=== PATIENT | male | born 1960 | race Caucasian/White ===

== ENCOUNTER → 2017-02-01 | Day surgery (SDC) | payer OTHER ==
[~2017-02-01] MED LIST: ATOR10TA60 PO; CETI10TA16 PO; HYDROmorphone 2 MG/ML VIAL IV PRN; IV RINGERS,LACTATED 1000ML 1,000 ML IV SCH; LIDOCAINE 1% PF 2 ML VIAL. ID PRN; LIDOCAINE 2% PF Vial for OR 5 ML VIAL. ONE; LISI1TAB3 PO; MORPHINE SULFATE 2 MG/ML DISP.SYRIN. IV PRN; OMEP40CA5 PO; ONDANSETRON PF 4 MG/2 ML VIAL. IV PRN; POLY255P PO; PROCHLORPERAZINE 10 MG/2 ML VIAL. IV PRN; PROPOFOL 40 ML IV ONE; fentaNYL PF VIAL 100 MCG/2 ML VIAL IV PRN
[2017-02-01 08:55] VITALS: BP 145/88
--- NOTE | 2017-02-02 13:23 | PATHOLOGY ---
PATHOLOGY REPORT * * * * * * * * FINAL DIAGNOSIS: A. Right colon random biopsies: - No significant pathologic abnormalities. B. Transverse colon random biopsies: - No significant pathologic abnormalities. C. Left colon random biopsies: - No significant pathologic abnormalities. (JPM:pit; 02/02/2017) COMMENT: Sections of the right colon, transverse colon, and left colon random biopsies appear similar and reveal segments of colonic mucosa. There is no evidence of an active chronic destructive colitis, lymphocytic colitis, or collagenous colitis. There is no dysplasia or evidence of malignancy. (JPM:pit; 02/02/2017) REPORT ELECTRONICALLY SIGNED BY: Karl Monae M.D. DATE/TIME: 02/02/2017 13:22 * * * * * * * * GROSS PATHOLOGY: A. Received in formalin labeled "Manuel Hu, random colon BX right colon," are multiple (more than 10) segments of burton soft tissue measuring 1.9 x 0.7 x 0.2 cm in aggregate dimensions and ranging from 0.2 to 0.4 cm in maximum dimension. The specimen is submitted entirely in cassette A1. B. Received in formalin labeled "Manuel Hu, transverse colon BX," are 9 segments of burton soft tissue measuring 1.6 x 0.6 x 0.3 cm in aggregate dimensions and ranging from 0.3 to 0.4 cm in maximum dimension. The specimen is submitted entirely in cassette B1. C. Received in formalin labeled "Manuel Hu, left colon BX," are 10 segments of burton soft tissue measuring 1.8 x 1.9 x 0.3 cm in aggregate dimensions and ranging from 0.3 to 0.6 cm in maximum dimension. The specimen is submitted entirely in cassette C1. (TSD; 02/01/2017) INITIAL CPT CODE(S): A; 16801 B; 79498 C; 06682 Professional services performed by [facility] at [facility] [address] [place] [address] Technical services performed by [facility] at [address] [place] [address], [address], [place] [address]. SPECIMEN(S) RECEIVED: A.Random colon biopsy, right colon B.Transverse colon biopsy C.Left colon biopsy, history of Crohn's CLINICAL HISTORY: Screening; History of Crohn's PATIENT: SIMON HUNASEEM Acevedo /AGE: 205/24/1960 (Age: 56) PATIENT #: [id number] ALT CASE #: SPECIMEN COLLECTION DATE: 02/01/2017 SPECIMEN RECEIVED DATE: 02/01/2017 [facility] - [address] [place] [id number] - PHONE: [phone] * * * END OF REPORT * * *
== END | disposition home or self-care (01) ==
LOC: ENDOS 06:57
PROVIDERS: ATTEND Internal Medicine Gastroenterology
DX: K64.0 First degree hemorrhoids (principal); K21.9 Gastro-esophageal reflux disease without esophagitis; E78.00 Pure hypercholesterolemia, unspecified; I10 Essential (primary) hypertension; M19.90 Unspecified osteoarthritis, unspecified site; F17.210 Nicotine dependence, cigarettes, uncomplicated; Z87.19 Personal history of other diseases of the digestive system; Z82.49 Family history of ischemic heart disease and other diseases of the circulatory system
CPT/HCPCS: 45380; 88305; J2704; J2001

== ENCOUNTER → 2017-04-14 | Outpatient (CLI) | payer OTHER | END | disposition home or self-care (01) | LOC: PNCL 10:16 | DX: M54.2 Cervicalgia (principal); M79.601 Pain in right arm; I10 Essential (primary) hypertension; K21.9 Gastro-esophageal reflux disease without esophagitis; K50.90 Crohn's disease, unspecified, without complications; Z87.891 Personal history of nicotine dependence | CPT/HCPCS: 99212 ==

== ENCOUNTER → 2017-04-28 | Outpatient (CLI) | payer OTHER ==
[~2017-04-28] MED LIST changes: -ATOR10TA60 PO; -CETI10TA16 PO; -HYDROmorphone 2 MG/ML VIAL IV PRN; +IOHEXOL 180 MG/ML 10 ML VIAL.; -IV RINGERS,LACTATED 1000ML 1,000 ML IV SCH; -LIDOCAINE 1% PF 2 ML VIAL. ID PRN; -LIDOCAINE 2% PF Vial for OR 5 ML VIAL. ONE; -LISI1TAB3 PO; -MORPHINE SULFATE 2 MG/ML DISP.SYRIN. IV PRN; -OMEP40CA5 PO; -ONDANSETRON PF 4 MG/2 ML VIAL. IV PRN; -POLY255P PO; -PROCHLORPERAZINE 10 MG/2 ML VIAL. IV PRN; -PROPOFOL 40 ML IV ONE; -fentaNYL PF VIAL 100 MCG/2 ML VIAL IV PRN; +methylPREDNISolone ACETATE 40 MG/ML VIAL.; +methylPREDNISolone ACETATE 80 MG/ML VIAL.
== END | disposition home or self-care (01) ==
LOC: PNCL 10:08
DX: M50.123 Cervical disc disorder at C6-C7 level with radiculopathy (principal); E78.00 Pure hypercholesterolemia, unspecified; I10 Essential (primary) hypertension; K50.90 Crohn's disease, unspecified, without complications; K21.9 Gastro-esophageal reflux disease without esophagitis
CPT/HCPCS: 62321; J1030; J1040

== ENCOUNTER → 2017-05-15 | Outpatient (CLI) | payer OTHER | END | disposition home or self-care (01) | LOC: PNCL 08:12 | DX: M50.123 Cervical disc disorder at C6-C7 level with radiculopathy (principal); E78.00 Pure hypercholesterolemia, unspecified; I10 Essential (primary) hypertension; Z87.39 Personal history of other diseases of the musculoskeletal system and connective tissue | CPT/HCPCS: 62321; J1030; J1040; Q9965 ==

== ENCOUNTER → 2017-05-29 | Outpatient (CLI) | payer OTHER | END | disposition home or self-care (01) | LOC: PNCL 08:02 | DX: M50.10 Cervical disc disorder with radiculopathy, unspecified cervical region (principal); R53.1 Weakness | CPT/HCPCS: 99212 ==

== ENCOUNTER → 2017-06-19 | Outpatient (CLI) | payer OTHER ==
[2017-06-19 15:50] LABS: ADD MAN DIFF? NO
[2017-06-19 15:53] LABS: BASO # 0.1 x10^3/uL (0.0-0.2); BASO % 1 % (0-3); EOS # 0.1 x10^3/uL (0.0-0.7); EOS % 2 % (0-3); HEMATOCRIT 45.4 % (39.0-53.0); HEMOGLOBIN 15.6 g/dL (13.0-17.5); LYMPH # 3.2 x10^3/uL (1.0-4.8); LYMPH % 37 % (24-48); MEAN CORPUSCULAR HEMOGLOBIN 31 pg (25-35); MEAN CORPUSCULAR HGB CONC 34 g/dL (31-37); MEAN CORPUSCULAR VOLUME 91 fL (79-100); MONO # 0.4 x10^3/uL (0.0-1.1); MONO % 5 % (0-9); NEUT # 4.8 x10^3uL (1.8-7.7); NEUT % 55 % (31-73); PLATELET COUNT 201 x10^3/uL (140-400); RED BLOOD COUNT 4.99 x10^6/uL (4.30-5.70); RED CELL DISTRIBUTION WIDTH 13.9 % (11.5-14.5); WHITE BLOOD COUNT 8.6 x10^3/uL (4.0-11.0)
[2017-06-19 16:33] LABS: ALBUMIN 3.8 g/dL (3.4-5.0); ALBUMIN/GLOBULIN RATIO 1.2 (1.0-1.7); ALK PHOS 125 U/L (46-116); ALT (SGPT) 24 U/L (16-63); ANION GAP 10 (6-14); AST (SGOT) 20 U/L (15-37); BLOOD UREA NITROGEN 8 mg/dL (8-26); BUN/CREATININE RATIO 9 (6-20); CALCIUM 9.5 mg/dL (8.5-10.1); CARBON DIOXIDE 29 mmol/L (21-32); CHLORIDE 105 mmol/L (98-107); CREATININE 0.9 mg/dL (0.7-1.3); GFR 87.6; GLUCOSE 92 mg/dL (70-99); POTASSIUM 3.5 mmol/L (3.5-5.1); SODIUM 144 mmol/L (136-145); TOTAL BILIRUBIN 0.3 mg/dL (0.2-1.0); TOTAL PROTEIN 7.1 g/dL (6.4-8.2)
[2017-06-20 02:19] LABS: MRSA BY PCR Negative (Negative)
== END | disposition home or self-care (01) ==
LOC: SURGPAT 13:29
DX: Z01.818 Encounter for other preprocedural examination (principal); Z87.891 Personal history of nicotine dependence
CPT/HCPCS: 36415; 80053; 85025; 87641; 93005

== ENCOUNTER 2017-06-26 06:58 | Observation (INO) | payer OTHER ==
[~2017-06-26 06:58] MED LIST changes: -IOHEXOL 180 MG/ML 10 ML VIAL.; +KETOROLAC 60 MG/2 ML INJ FOR OR.; -methylPREDNISolone ACETATE 40 MG/ML VIAL.; -methylPREDNISolone ACETATE 80 MG/ML VIAL.
[2017-06-26] MEDS ORDERED: MORPHINE SULFATE 4 MG/ML DISP.SYRIN. IV (07:00)
[2017-06-26] MEDS ORDERED: fentaNYL PF VIAL 100 MCG/2 ML VIAL IV (07:00)
[2017-06-26] MEDS ORDERED: ONDANSETRON PF 4 MG/2 ML VIAL. IV ×2 (07:00→12:00)
[2017-06-26] MEDS ORDERED: LIDOCAINE 1% PF 2 ML VIAL. ID (07:00)
[2017-06-26] MEDS ORDERED: BUPIVAC MPF-EPI 0.5%-1:200000 30 ML VIAL. (07:43)
[2017-06-26] MEDS: IV RINGERS,LACTATED 1000ML 1,000 ML IV (07:44)
[2017-06-26] MEDS ORDERED: NEOSTIGMINE 10 MG/10 ML VIAL. (08:11)
[2017-06-26] MEDS ORDERED: fentaNYL PF VIAL 100 MCG/2 ML VIAL ×2 (08:11→11:30)
[2017-06-26] MEDS ORDERED: MIDAZOLAM HCL/PF 2 MG/2 ML VIAL. (08:11)
[2017-06-26] MEDS ORDERED: PROPOFOL 50 ML IV ×2 (08:12→09:07)
[2017-06-26] MEDS ORDERED: REMIFENTANIL 2 MG VIAL. IV (08:12)
[2017-06-26] MEDS ORDERED: ONDANSETRON PF 4 MG/2 ML VIAL. (08:12)
[2017-06-26] MEDS ORDERED: GLYCOPYRROLATE 1 MG/5 ML VIAL. (08:12)
[2017-06-26] MEDS ORDERED: DEXAMETHASONE SOD PHOS 20 MG/5 ML VIAL. (08:12)
[2017-06-26] MEDS ORDERED: DESFLURANE > 120 MINUTES IH (08:12)
[2017-06-26] MEDS ORDERED: ROCURONIUM 50 MG/5 ML VIAL. (08:12)
[2017-06-26] MEDS ORDERED: PROPOFOL 20 ML IV (08:13)
[2017-06-26] MEDS ORDERED: PHENYLEPHRINE 10 MG/ML VIAL. ×2 (08:15)
[2017-06-26] MEDS: BUPIVAC MPF-EPI 0.5%-1:200000 30 ML VIAL. INJ (09:26)
[2017-06-26] MEDS: GELATIN SPONGE SIZE 100. (09:26)
[2017-06-26] MEDS: BACITRACIN 50,000 UNIT in IV NORMAL SALINE 1000ML BAG 1,000 ML IRR (09:26)
[2017-06-26] MEDS: THROMBIN TOPICAL 20,000 UNIT SPRAY.SYRN KIT TP (09:26)
[2017-06-26] MEDS ORDERED: PROCHLORPERAZINE 10 MG/2 ML VIAL. (11:30)
[2017-06-26] MEDS: PROCHLORPERAZINE 10 MG/2 ML VIAL. IV (11:33)
[2017-06-26] MEDS: fentaNYL PF VIAL 100 MCG/2 ML VIAL IV ×2 (11:43→12:12)
[2017-06-26] MEDS ORDERED: POLYETHYLENE GLYCOL 3350 17 GM PACKET. PO (11:55)
[2017-06-26] MEDS ORDERED: CALCIUM CARBONATE 500 MG TAB.CHEW PO (12:00)
[2017-06-26] MEDS ORDERED: diphenhydrAMINE HCL 25 MG CAPSULE PO (12:00)
[2017-06-26] MEDS ORDERED: MAGNESIUM HYDROXIDE 2,400 MG/30 ML ORAL.SUSP. PO (12:00)
[2017-06-26] MEDS ORDERED: diphenhydrAMINE 50 MG/ML VIAL IV (12:00)
[2017-06-26] MEDS ORDERED: ACETAMINOPHEN 325 MG TABLET. PO (12:00)
[2017-06-26] MEDS ORDERED: HYDROcodone/APAP 7.5/325MG 1 TAB TABLET PO (12:00)
[2017-06-26] MEDS ORDERED: 0.9 % SODIUM CHLORIDE 10 ML DISP.SYRIN. IV (12:00)
[2017-06-26] MEDS ORDERED: MAG HYDROX/ALUMINUM HYD/SIMETH 30 ML ORAL.SUSP PO (12:00)
[2017-06-26] MEDS ORDERED: ZOLPIDEM 5 MG TABLET. PO (12:00)
[2017-06-26] MEDS: POTASSIUM CL 20MEQ D5-0.45NACL 1,000 ML IV (13:14)
[2017-06-26] MEDS: hydroCHLOROthiazide 12.5 MG CAPSULE PO (13:17)
[2017-06-26] MEDS: LISINOPRIL 10 MG TABLET PO (13:17)
[2017-06-26] MEDS: METHOCARBAMOL 750 MG TABLET PO ×2 (13:18→21:10)
[2017-06-26] MEDS: HYDROcodone/APAP 7.5/325MG 1 TAB TABLET PO ×2 (13:19→16:11)
[2017-06-26] MEDS ORDERED: ceFAZolin SODIUM 1 GM in IV DEXTROSE 5% 50 ML IV (14:00)
[2017-06-26] MEDS: ceFAZolin SODIUM IV Push 1 GM VIAL. IVP (16:11)
[2017-06-26] MEDS: DOCUSATE SODIUM 100 MG CAPSULE. PO (21:10)
[2017-06-27] MEDS: ceFAZolin SODIUM IV Push 1 GM VIAL. IVP ×2 (00:58→08:03)
[2017-06-27] MEDS: POTASSIUM CL 20MEQ D5-0.45NACL 1,000 ML IV (00:59)
[2017-06-27] MEDS: HYDROcodone/APAP 7.5/325MG 1 TAB TABLET PO ×2 (01:12→08:05)
[2017-06-27] MEDS: PANTOPRAZOLE 40 MG TABLET.DR. PO (06:18)
[2017-06-27] MEDS: ATORVASTATIN CALCIUM 10 MG TABLET. PO (08:04)
[2017-06-27] MEDS: DOCUSATE SODIUM 100 MG CAPSULE. PO (08:04)
[2017-06-27] MEDS: CETIRIZINE HCL 10 MG TABLET. PO (08:05)
[2017-06-27] MEDS: LISINOPRIL 10 MG TABLET PO (08:05)
[2017-06-27] MEDS: hydroCHLOROthiazide 12.5 MG CAPSULE PO (08:05)
[2017-06-27] MEDS: METHOCARBAMOL 750 MG TABLET PO (08:05)
== END 2017-06-27 11:20 | disposition home or self-care (01) ==
LOC: SURG 06:58 → 4 SOUTHEST 11:52
DX: M48.02 Spinal stenosis, cervical region (principal); M50.122 Cervical disc disorder at C5-C6 level with radiculopathy; I10 Essential (primary) hypertension; Z83.3 Family history of diabetes mellitus; Z87.891 Personal history of nicotine dependence; Z82.49 Family history of ischemic heart disease and other diseases of the circulatory system
CPT/HCPCS: 20931; 76000; 88304; 96374; 96376; 97162-GP; 97530-GP; C1713; G0378; G0379; G8978-CI-GP; G8979-CI-GP; G8980-CI-GP; J0690; J0780; J1100; J1885; J2250; J2405; J2704; J2710; J3010; J3490; J7030; J7120

== ENCOUNTER → 2018-01-22 | Outpatient (CLI) | payer OTHER ==
[2017-06-27 12:40] VITALS: BP 104/67
[~2018-01-22] MED LIST changes: +ATOR10TA60 PO; +CETI10TA16 PO; +CYCL10TA2 PO; +DICL50TA4 PO; +DOCU-109 PO; +HYDR-2762 PO; -KETOROLAC 60 MG/2 ML INJ FOR OR.; +LISI1TAB3 PO; +METH750T2 PO; +OMEP40CA5 PO; +OXYC1TAB7 PO; +POLY255P PO; +TRAM50TA PO
--- NOTE | 2018-01-22 16:05 | RAD ---
CT of the chest without contrast, 01/22/2018: HISTORY: Low dose CT lung cancer screening, smoker Multidetector CT imaging was performed without contrast utilizing a low-dose technique. Multiplanar reconstructions were produced. There are several minimal linear parenchymal scars. There are couple of tiny perifissural nodules related to the oblique fissure on the left. These include a flat 3 x 6 mm left perihilar nodule seen on image 164 of series #2. These are typically benign findings. No suspicious lung nodule or mass is seen. There is no evidence of pleural fluid. The central bronchi are unremarkable. There is mild calcific plaquing of the thoracic aorta without evidence of aneurysm. Minimal coronary artery calcification is present. Several small mediastinal lymph nodes are seen without evidence of pathologic enlargement. There is no evidence of pleural fluid. Moderate scattered degenerative changes are present in the spine. There is a surgical plate and screws evident in the lower cervical spine. IMPRESSION: 1. Small benign-appearing perifissural nodules on the left. 2. Minimal coronary artery calcification. 3. Lung RADS category 2 - 12 month follow-up suggested. PQRS Compliance Statement: One or more of the following individualized dose reduction techniques were utilized for this examination: 1. Automated exposure control 2. Adjustment of the mA and/or kV according to patient size 3. Use of iterative reconstruction technique Electronically signed by: Kevin Iverson MD (01/22/2018 4:01 PM) [facility]
== END | disposition home or self-care (01) ==
LOC: CT 13:52
PROVIDERS: ATTEND Family Medicine
DX: Z12.2 Encounter for screening for malignant neoplasm of respiratory organs (principal); F17.210 Nicotine dependence, cigarettes, uncomplicated; I25.10 Atherosclerotic heart disease of native coronary artery without angina pectoris
CPT/HCPCS: G0297

== ENCOUNTER → 2019-02-25 | Outpatient (CLI) | payer OTHER ==
[2017-06-27 12:40] VITALS: BP 104/67
[~2019-02-25] MED LIST changes: -HYDR-2762 PO; +HYDR-2765 PO; +LISI1TAB23 PO; -LISI1TAB3 PO; +OMEP40CA45 PO; -OMEP40CA5 PO; -POLY255P PO; +POLY255P11 PO
--- NOTE | 2019-02-25 08:16 | RAD ---
Carotid doppler ultrasound History: Syncope, high cholesterol, smoker Multiple grayscale, color, and duplex spectral analysis waveform sonographic images were acquired of the carotid, subclavian, and vertebral arteries. Comparison: None Findings: RIGHT: PSV cm/sec EDV cm/sec Common carotid artery 111 19 Maximal internal carotid artery 63 15 External carotid artery 105 Vertebral artery 44 ICA/CCA ratio 0.57 LEFT: PSV cm/sec EDV cm/sec Common carotid artery 93 24 Maximum internal carotid artery 69 28 Subclavian artery External carotid artery 89 Vertebral artery 45 ICA/CCA ratio 0.68 Velocities used to determine stenosis are known to correlate with NASCET angiographic criteria. There is antegrade flow in the bilateral vertebral arteries. There is intimal thickening of the bilateral common carotid arteries, also mild plaque of the proximal internal carotid arteries bilaterally. Impression: 1. There is no evidence of a hemodynamically significant stenosis. There is mild plaque and intimal thickening bilaterally. Electronically signed by: Percy Sosa MD (02/25/2019 8:14 AM) [facility]
== END | disposition home or self-care (01) ==
LOC: US 06:47
PROVIDERS: ATTEND Internal Medicine
DX: I65.23 Occlusion and stenosis of bilateral carotid arteries (principal); E78.00 Pure hypercholesterolemia, unspecified; Z87.891 Personal history of nicotine dependence
CPT/HCPCS: 93880

== ENCOUNTER → 2019-03-11 | Outpatient (CLI) | payer OTHER ==
[2017-06-27 12:40] VITALS: BP 104/67
--- NOTE | 2019-03-11 10:05 | RAD ---
MR#: [id number] Date of Study: 03/11/2019 Ordering Physician: MORAIMA EUBANKS, Referring Physician: DESMOND WHITAKER Tech: APPROVED REPORT Test Type: Exercise Stress Nurse/Tech: Citlalli Kraft RN Test Indications: syncope Cardiac History: HTN, smoker Medications: See Electronic Medical Record Medical History: See Electronic Medical Record Resting ECG: SR Resting Heart Rate: 90 bpm Resting Blood Pressure: 125/70mmHg Pretest Chest Pain: NoneNone Nurse/Tech Notes lungs CTA, S1S2 Consent: The procedure was explained to the patient in lay terms. Informed consent was witnessed. Sajan eout was entered into [employer]. History and Stress Test performed by Rik Romero, RT (R) (N) Stress Symptoms No chest pain, dyspnea POST EXERCISE Reason for Termination: Reached target heart rate Target HR: 139 Exercise duration: 6:00 min:sec, 3 Stage Max Blood Pressure: 156/77mmHg Blood Pressure response to exercise: Normal blood pressure response during stress. Heart Rate response to exercise: normal response Chest Pain: No. Arrhythmia: No. ST Change: No. INTERPRETATION Stress EKG Conclusion: No evidence of stress induced EKG changes. Conclusion 1. Good exercise capacity with normal BP response. 2. No evidence of resting EKG abnormalities. 3. Normal stress EKG. 4. Low risk study 5. No imaging performed (Treadmill EKG only) Signed by : Negrito Flower, Electronically Approved : 03/11/2019 10:05:28
== END | disposition home or self-care (01) ==
LOC: NM 09:02
PROVIDERS: ATTEND Internal Medicine
DX: I20.9 Angina pectoris, unspecified (principal); I10 Essential (primary) hypertension; Z87.891 Personal history of nicotine dependence
CPT/HCPCS: 93017

== ENCOUNTER 2019-04-26 08:48 | Observation (INO) | payer OTHER ==
[~2019-04-26] VITALS: Ht 177.8 cm; Wt 104.3 kg
[2019-04-26] VITALS (12 sets, daily range): BP systolic 114–144; BP diastolic 61–87
[2019-04-26 09:23] LABS: CALCIUM 9.6 mg/dL (8.5-10.1); GFR 77.3
[2019-04-26] MEDS ORDERED: GABA300C18 PO (09:31)
[2019-04-26 09:35] LABS: HEMATOCRIT 51.1 % (39.0-53.0); HEMOGLOBIN 17.3 g/dL (13.0-17.5); RED BLOOD COUNT 5.65 x10^6/uL (4.30-5.70); RED CELL DISTRIBUTION WIDTH 14.4 % (11.5-14.5); WHITE BLOOD COUNT 9.5 x10^3/uL (4.0-11.0)
[2019-04-26 10:00] LABS: PROTHROMBIN TIME PATIENT 12.5 SEC (11.7-14.0)
[2019-04-26] MEDS ORDERED: IODIXANOL 320 MG/ML 100 ML VIAL. ONE (10:03)
[2019-04-26] MEDS ORDERED: LIDOCAINE 1% PF 2 ML VIAL. ONE (10:03)
[2019-04-26] MEDS ORDERED: HEPARIN for IV BOLUS 10,000 UNIT/10 ML VIAL. ONE (10:10)
[2019-04-26] MEDS ORDERED: MIDAZOLAM HCL/PF 2 MG/2 ML VIAL. ONE (10:10)
[2019-04-26] MEDS ORDERED: VERAPAMIL 5 MG/2 ML VIAL. ONE (10:10)
[2019-04-26] MEDS ORDERED: fentaNYL PF VIAL 100 MCG/2 ML VIAL ONE (10:10)
[2019-04-26] MEDS ORDERED: NITROGLYCERIN 200 MCG/2 ML SYRINGE FOR CATH/VASC LAB. ONE ×2 (10:11→11:14)
[2019-04-26] MEDS ORDERED: VERAPAMIL 5 MG/2 ML VIAL. IART ONE (10:45)
[2019-04-26] MEDS ORDERED: MIDAZOLAM HCL/PF 2 MG/2 ML VIAL. IV ONE ×2 (10:45→11:00)
[2019-04-26] MEDS ORDERED: IODIXANOL 320 MG/ML 100 ML VIAL. IART ONE (10:45)
[2019-04-26] MEDS ORDERED: HEPARIN for IV BOLUS 10,000 UNIT/10 ML VIAL. IART ONE (10:45)
[2019-04-26] MEDS ORDERED: NITROGLYCERIN 200 MCG/2 ML SYRINGE FOR CATH/VASC LAB. IART ONE ×2 (10:45→11:15)
[2019-04-26] MEDS ORDERED: LIDOCAINE 1% PF 2 ML VIAL. INJ ONE (10:45)
[2019-04-26] MEDS ORDERED: BIVALIRUDIN 250 MG VIAL. IV ONE ×2 (10:45→11:00)
[2019-04-26] MEDS ORDERED: fentaNYL PF VIAL 100 MCG/2 ML VIAL IV ONE (10:45)
[2019-04-26] MEDS ORDERED: CONTRAST GIVEN. MC PRN (11:00)
[2019-04-26] MEDS ORDERED: ATROPINE 1 MG/10 ML DISP.SYRINGE. ONE (11:02)
[2019-04-26] MEDS ORDERED: ASPIRIN 325 MG TABLET ONE (11:24)
[2019-04-26] MEDS ORDERED: TICAGRELOR 90 MG TABLET. ONE (11:24)
--- NOTE | 2019-04-26 11:36 | PDOC ---
MODERATE SEDATION ASSESSMENT RISKS/ALTERNATIVES Risks/Alternatives Risks and alternatives of this type of sedation and procedure discussed with: RISK/ALTERNATIVES: Patient H & P ON CHART H & P H & P on chart and reviewed for co-morbid conditions and appropriate labs. H&P ON CHART: Yes STATUS PREG STATUS ASSESSED: N/A MEDS/ALLERGIES REVIEWED Meds/Allergies Reviewed Medications and Allergies including time and route of recently administered narcotics and sedatives. MEDS/ALLERGIES REVIEWED: Yes ASA RATING ASA RATING: II AIRWAY ASSESSMENT Airway Assessment Airway patency, oral function limitations, presence of caps, crowns, dentures, partials, and ability to extend neck assessed. AIRWAY ASSESSMENT: Yes MALLAMPATI SCORE MALLAMPATI SCORE: II PRE-SEDATION ASSESSMENT PRE-SEDATION ASSESSMENT: Yes RABIA VASQUEZ MD Apr 26, 2019 11:36
[2019-04-26] MEDS ORDERED: TICAGRELOR 90 MG TABLET. PO ONE (11:45)
[2019-04-26] MEDS ORDERED: ACETAMINOPHEN 325 MG TABLET. PO PRN (11:45)
[2019-04-26] MEDS ORDERED: NITROGLYCERIN SUBLINGUAL 0.4 MG BOTTLE OF 25. SL PRN (11:45)
[2019-04-26] MEDS ORDERED: ASPIRIN 325 MG TABLET PO ONE (11:45)
--- NOTE | 2019-04-26 11:50 | CARD ---
MR#: [id number] Date of Study: 04/26/2019 Ordering Physician: RABIA DESAI, Referring Physician: RABIA DESAI, Tech: RT Alejandra (R) APPROVED REPORT Technologist: Madelyn Hernandez RT (R) Nurse: Kacey Siddiqi Procedure(s) performed: 1. Left heart catheterization and selective coronary angiography via right t ransradial approach 2. Successful PCI/drug eluting stents placement to the right coronary artery, left circumflex artery and the first obtuse marginal branch fl time: 15.7 mins dose: 171 gy/cm2 contrast: 222 ml moderate sedation: 60 min INDICATION The indication(s) include : unstable angina . CS Clinical Frailty Scale [facility] Clinical Frailty Scale: Managing Well Heart Failure Heart Failure: No PROCEDURE NARRATIVE After explaining the risks, benefits and alternative options, informed consent was obtained from morgan ent. Patient was brought to the cardiac Tool Checker and right wrist was prepped and draped in the usual fashion after confirming a positive modified Francisco J's test. Arterial access was obtained in the righ t radial artery and a 6 Kyrgyz sheath was inserted. 6 Kyrgyz Mychal catheter was used to perform yessenia ective angiography of the left and right coronary arteries. LVEDP and transaortic gradients were nico ured. The following findings were noted. FINDINGS 1. Hemodynamics: Left ventricular end-diastolic pressure of 17 mmHg. No pullback gradient across th e aortic valve. 2. Coronary angiography: a. The left main coronary artery arose from the left sinus of Valsalva, gave rise to the left anteri or descending and left circumflex arteries and did not show any significant stenosis. b. The left anterior descending artery showed 30% stenosis in the midsegment. c. The left circumflex artery showed 70% stenosis in the mid to distal segment. The first obtuse mar ginal branch which is a large caliber vessel showed 70-80% stenosis. The second obtuse marginal branc h which is a small-caliber vessel showed 80% proximal segment stenosis. d. The right coronary artery was a large and dominant vessel arising from the right sinus of Valsalv a that showed 90% stenosis involving the distal segment. INTERVENTION The right coronary artery was engaged with a 6 Kyrgyz JR4 guide catheter. The stenosis in the distal segment was crossed with a 0.014 inch Youtego Pro water guidewire. This was predilated with a 3.0 x 15 mm trek balloon following which this was successfully treated with a 3.5 x 18 mm resolute rosamaria drug-e luting stent. Follow-up angiography showed resolution of the stenosis to 0% with PATRICA-3 distal flow. Subsequently, the left main cornea artery was engaged with 6 Kyrgyz XB 3.5 guide catheter and the sahra nosis in the left circumflex artery was crossed with the same guidewire. This was directly treated wi th a 3.0 x 12 mm resolute rosamaria drug-eluting stent. Finally, the stenosis in the first of marginal bra nch was crossed with the same guidewire, predilated with the stent balloon and successfully treated w ith a 3.0 x 15 mm resolute rosamaria drug-eluting stent. Follow-up angiography showed resolution of both t he lesions to 0% with PATRICA-3 distal flow. Patient tolerated the procedure well. Hemostasis was achiev ed using TR band. There were no immediate complications. PATRICA Flow PATRICA Flow (Pre-Intervention): PATRICA-2 PATRICA Flow (Post-Intervention): PATRICA-3 COMMENTS RCA PATRICA Flow PATRICA Flow (Pre-Intervention): PATRICA-3 PATRICA Flow (Post-Intervention): PATRICA-3 COMMENTS Circ PATRICA Flow PATRICA Flow (Pre-Intervention): PATRICA-3 PATRICA Flow (Post-Intervention): PATRICA-3 COMMENTS OM Conclusion 1. Severe two-vessel coronary artery disease 2. Successful PCI/drug eluting stents placement to the right coronary artery, left circumflex artery and also the first obtuse marginal branch Recommendations 1. Aspirin 81 mg daily 2. Ticagrelor 90 mg twice daily for preferably one year 3. Cardiovascular risk factor modification Signed by : Rabia Desai, Electronically Approved : 04/26/2019 11:50:03
[2019-04-26] MEDS: METOPROLOL TART IMMED RELEASE 25 MG TABLET. PO SCH ×2 (12:36→20:52)
[2019-04-26] MEDS: IV 1/2 NORMAL SALINE 1,000 ML IV SCH ×2 (12:38→20:53)
[2019-04-26] MEDS ORDERED: PERFLUTREN PROTEIN-A MICROSPHR 0.22 MG/ML 3 ML VIAL. IV ONE (15:31)
[2019-04-26] MEDS ORDERED: ATORVASTATIN CALCIUM 20 MG TABLET PO SCH (21:00)
[2019-04-27 03:45] VITALS: BP 127/82
[2019-04-27 07:00] VITALS: BP 126/84
[2019-04-27] MEDS: IV 1/2 NORMAL SALINE 1,000 ML IV SCH (07:36)
[2019-04-27] MEDS ORDERED: ASPIRIN ENTERIC COATED 81 MG TABLET.DR. PO SCH (08:00)
[2019-04-27] MEDS ORDERED: TICAGRELOR 90 MG TABLET. PO SCH (09:00)
[2019-04-27] MEDS: METOPROLOL TART IMMED RELEASE 25 MG TABLET. PO SCH (09:10)
--- NOTE | 2019-04-27 09:46 | CARD ---
MR#: [id number] Date of Study: 04/26/2019 Ordering Physician: RABIA DESAI, Referring Physician: RABIA DESAI, Tech: Bobbi Araya APPROVED REPORT EXAM: Two-dimensional and M-mode echocardiogram with Doppler and color Doppler. Other Information Quality : FairHR: 68bpm INDICATION Chest Pain Echo Enhancing Agent Indication: Endocardial border delineation Agent/Amount Used: Optison 10mL RISK FACTORS Hypertension Hyperlipidemia Smoking 2D DIMENSIONS Left Atrium(2D)3.0 (1.6-4.0cm)IVSd1.2 (0.7-1.1cm) Aortic Root(2D)3.8 (2.0-3.7cm)LVDd5.2 (3.9-5.9cm) LVOT Diameter2.0 (1.8-2.4cm)PWd0.9 (0.7-1.1cm) LVDs3.2 (2.5-4.0cm)FS (%) 37.4 % SV86.0 mlLVEF(%)67.1 (>50%) Aortic Valve AoV Peak Mk.139.4cm/sAoV VTI25.4cm AO Peak GR.7.8mmHgLVOT VTI 23.30cm AO Mean GR.4mmHg Mitral Valve MV E Qzopxtqv99.8cm/sMV E Peak Gr.3mmHg MV DECEL [id number] A Khnkgyls15.0cm/s MV E Mean Gr.1mmHgE/A Ratio1.1 Pulmonary Vein S1 Loyhkcnu20.5cm/sS2 Vdprnnbm61.53cm/s D2 Urghzerv97.5cm/sPVa [id number] LEFT VENTRICLE The left ventricle is normal size. There is borderline concentric left ventricular hypertrophy. The l eft ventricular systolic function is normal. The Ejection Fraction is 55%. There is normal LV segment al wall motion. RIGHT VENTRICLE The right ventricle is normal size. There is normal right ventricular wall thickness. The right ventr icular systolic function is normal. ATRIA The left atrium size is normal. The right atrium size is normal. The interatrial septum is intact wit h no evidence for an atrial septal defect or patent foramen ovale as noted on 2-D or Doppler imaging. AORTIC VALVE The aortic valve is not well visualized. Doppler and Color Flow revealed no significant aortic regurg itation. There is no significant aortic valvular stenosis. MITRAL VALVE The mitral valve is normal in structure and function. There is no evidence of mitral valve prolapse. There is no mitral valve stenosis. Doppler and Color Flow revealed no mitral valve regurgitation note d. TRICUSPID VALVE The tricuspid valve is not well visualized. Doppler and Color Flow revealed no tricuspid valve regurg itation noted. There is no tricuspid valve stenosis. PULMONIC VALVE The pulmonic valve is not well visualized. Doppler and Color Flow revealed no pulmonic valvular regur gitation. GREAT VESSELS The aortic root is normal in size. The IVC is normal in size and collapses >50% with inspiration. PERICARDIAL EFFUSION There is no evidence of significant pericardial effusion. Critical Notification Critical Value: No <Conclusion> Technically difficult study. Valves poorly visualized. Optison echo contrast used for endocardial de finition. The left ventricular systolic function is normal. The Ejection Fraction is 55%. There is normal LV segmental wall motion. There is no evidence of significant pericardial effusion. Signed by : Rabia Desia, Electronically Approved : 04/27/2019 09:46:10
[2019-04-27 11:21] VITALS: BP 128/70
[2019-04-27] MEDS ORDERED: TICA90TA PO (11:29)
[2019-04-27] MEDS ORDERED: ATOR20TA58 PO (11:29)
[2019-04-27] MEDS ORDERED: METO25TA4 PO (11:29)
--- NOTE | 2019-04-27 11:30 | PDOC3 ---
Discharge Summary Visit Information Date of Admission: Apr 26, 2019 Date of Discharge: Apr 27, 2019 Admitting Diagnosis: unstable angina Final Diagnosis Unstable angina Coronary artery disease Hypertension Hyperlipidemia Brief Hospital Course Allergies Allergies Coded Allergies Type Severity Reaction Last Updated Verified No Known Drug Allergies 06/26/17 No Vital Signs Vital Signs Date Time Temp Pulse Resp B/P (MAP) Pulse Ox O2 Delivery O2 Flow Rate FiO2 04/27/19 11:21 97.7 68 18 128/70 (89) 98 Room Air 97.7 04/26/19 10:45 2.0 Lab Results Laboratory Tests Test 04/26/19 09:10 White Blood Count 9.5 x10^3/uL (4.0-11.0) Red Blood Count 5.65 x10^6/uL (4.30-5.70) Hemoglobin 17.3 g/dL (13.0-17.5) Hematocrit 51.1 % (39.0-53.0) Mean Corpuscular Volume 90 fL (79-100) Mean Corpuscular Hemoglobin 31 pg (25-35) Mean Corpuscular Hemoglobin Concent 34 g/dL (31-37) Red Cell Distribution Width 14.4 % (11.5-14.5) Platelet Count 193 x10^3/uL (140-400) Prothrombin Time 12.5 SEC (11.7-14.0) Prothromb Time International Ratio 1.0 (0.8-1.1) Sodium Level 141 mmol/L (136-145) Potassium Level 4.0 mmol/L (3.5-5.1) Chloride Level 103 mmol/L (98-107) Carbon Dioxide Level 30 mmol/L (21-32) Anion Gap 8 (6-14) Blood Urea Nitrogen 10 mg/dL (8-26) Creatinine 1.0 mg/dL (0.7-1.3) Estimated GFR (Cockcroft-Gault) 77.3 Glucose Level 112 mg/dL (70-99) Calcium Level 9.6 mg/dL (8.5-10.1) Brief Hospital Course Mr. Delgado is a 58 old who presented with unstable angina and underwent cardiac catheterization with successful PCI/ANNA to RCA and LCx/OM. He remained hemodynamically stable and symptom-free during his hospital stay and his right wrist looked good at the time of discharge. Continue dual antiplatelet therapy and follow-up with our office as scheduled. Discharge Information Condition at Discharge: Stable Follow Up: Months (1) Disposition/Orders: D/C to Home Scheduled Atorvastatin Calcium (Atorvastatin Calcium) 20 Mg Tablet, 40 MG PO QHS for hlp for 30 Days, #60 Ref 3 Prescribed by: RABIA VASQUEZ on 04/27/191128 Cetirizine Hcl (Cetirizine Hcl) 10 Mg Tablet, 1 TAB PO DAILY, #30 Ref 5 (Reported) Entered as Reported by: BRENDA GARCIA on 02/01/17721 Last Action: Reviewed on 04/26/19930 by PENNY PADILLA Gabapentin (Gabapentin ) 300 Mg Capsule, 300 MG PO TID for NEUROGENIC PAIN, (Reported) Entered as Reported by: PENNY PADILLA on 04/26/19930 Last Action: New Order on 04/26/19930 by PENNY PADILLA Lisinopril/Hydrochlorothiazide (Lisinopril-Hctz 10-12.5 Mg Tab) 1 Each Tablet, 1 TAB PO DAILY, #30 Ref 5 (Reported) Entered as Reported by: BRENDA GARCIA on 02/01/17720 Last Action: Reviewed on 04/26/19930 by PENNY PADILLA Metoprolol Tartrate (Metoprolol Tartrate) 25 Mg Tablet, 12.5 MG PO BID for cad for 30 Days, #30 Ref 3 Prescribed by: RABIA VASQUEZ on 04/27/191128 Omeprazole (Omeprazole) 40 Mg Capsule.dr, 1 CAP PO DAILY, #30 Ref 3 (Reported) Entered as Reported by: BRENDA GARCIA on 02/01/17720 Last Action: Reviewed on 04/26/19930 by PENNY PADILLA Ticagrelor (Brilinta) 90 Mg Tablet, 90 MG PO BID for stent for 30 Days, #60 Ref 3 Prescribed by: RABIA VASQUEZ on 04/27/19 112 Discontinued Medications Atorvastatin Calcium (Atorvastatin Calcium) 10 Mg Tablet, 1 TAB PO DAILY, #30 Ref 5 (Reported) Entered as Reported by: BRENDA GARCIA on 02/01/17721 Last Action: Reviewed on 04/26/19930 by RABIA STEPHENS MD Apr 27, 2019 11:30
--- NOTE | 2019-04-27 13:15 | NUR ---
Discharge Note: ARIS GARCIA Discharge instructions and discharge home medications reviewed with Patient and a copy given. All questions have been answered and understanding verbalized. The following instructions and handouts were given: metoprolGodwin stephens Patient discharged to home with brother via ambulatory
== END 2019-04-27 13:00 | disposition home or self-care (01) ==
LOC: ECHO 08:48 → INTOOBSV 10:50 → 2 NORTH 10:50
PROVIDERS: ADMIT Internal Medicine Cardiovascular Disease; ATTEND Internal Medicine Cardiovascular Disease
PROC: 027236Z Dilation of Coronary Artery, Three Arteries with Three Drug-eluting Intraluminal Devices, Percutaneous Approach (ICD-10-PCS; principal; 2019-04-26)
PROC: 4A023N7 Measurement of Cardiac Sampling and Pressure, Left Heart, Percutaneous Approach (ICD-10-PCS; 2019-04-26)
PROC: B2111ZZ Fluoroscopy of Multiple Coronary Arteries using Low Osmolar Contrast (ICD-10-PCS; 2019-04-26)
DX: I25.10 Atherosclerotic heart disease of native coronary artery without angina pectoris (principal); R55 Syncope and collapse; I10 Essential (primary) hypertension; E78.5 Hyperlipidemia, unspecified; Z72.0 Tobacco use; Z90.49 Acquired absence of other specified parts of digestive tract
CPT/HCPCS: 36415; 80048; 85027; 85610; 92928; 92929; 93458; 96361; 96374; 99406; C1725; C1769; C1874; C1887; C1892; C8929; G0378; G0379; J0583; J1644; J2250; J3010; J3490; Q9967; 99152; 99153

== ENCOUNTER → 2020-03-18 | Outpatient (CLI) | payer OTHER ==
[~2020-03-18] MED LIST changes: +ATOR20TA58 PO; +GABA300C18 PO; +METO25TA4 PO; +TICA90TA PO
--- NOTE | 2020-03-18 14:36 | RAD ---
EXAM: Chest, 2 views. HISTORY: Shortness of breath. COMPARISON: None. FINDINGS: 2 views of the chest are obtained. There is no infiltrate, pleural effusion or pneumothorax . The heart is normal in size. There is cervical spinal fusion instrumentation. IMPRESSION: No acute pulmonary finding. Electronically signed by: Liliana Chaparro MD (03/18/2020 2:34 PM) [id number]
== END ==
LOC: RAD 12:04
PROVIDERS: ATTEND Internal Medicine Critical Care Medicine
DX: R06.02 Shortness of breath (principal); Z98.1 Arthrodesis status
CPT/HCPCS: 71046

== ENCOUNTER → 2020-03-30 | Outpatient (CLI) | payer OTHER ==
[~2020-03-30] MED LIST changes: +IOHEXOL 350 MG/ML 100 ML VIAL. IV ONE
--- NOTE | 2020-03-30 10:55 | RAD ---
EXAM: CT Pulmonary Angiogram INDICATION: Reason: R/O PE. CHEST PAIN / Spl. Instructions: IV OMNI 350 80 MLS / History: TECHNIQUE: Multi-detector row images were acquired from the thoracic inlet through the upper abdomen with the use of IV contrast. Sagittal and coronal images were acquired from the transaxial data. FL P images of the pulmonary arteries were obtained. All CT scans performed at this facility utilize dos e optimization techniques as appropriate to the exam, including the following: Automated exposure con trol and adjustment of the mA and/or KV according to patient size (this includes techniques or standa rdized protocols for targeted exams where dose is indication/reason for exam). IV CONTRAST: Administered COMPARISON: None FINDINGS: PULMONARY ARTERIES: No pulmonary emboli are identified. CARDIOVASCULAR: Normal heart size. Multivessel coronary calcifications are present. Aorta is normal caliber. MEDIASTINUM & CONSTANCE: No adenopathy or masses. LUNGS: No pulmonary infiltrate, nodule, or other focal abnormality. PLEURAL SPACE: No pleural effusions or pneumothorax. OSSEOUS & SOFT TISSUE: Unremarkable ABDOMEN: The visualized portions of the upper abdomen are unremarkable. IMPRESSION: Coronary artery disease. Otherwise unremarkable CT pulmonary angiogram. No evidence of pulmonary embo li. Electronically signed by: Sandy Hirsch MD (03/30/2020 10:53 AM) [id number]
--- NOTE | 2020-03-30 16:05 | RAD ---
EXAM: CT Neck with IV contrast INDICATION: Reason: CHOCKING / Spl. Instructions: IV OMNI 350 20 MLS / History: TECHNIQUE: Multiple contiguous axial images were obtained of the neck with the use of IV contrast. Po st-processing reconstructed images were obtained for interpretation. All CT scans performed at this [facility] utilize dose optimization techniques as appropriate to the exam, including the following: Aut omated exposure control and adjustment of the mA and/or KV according to patient size (this includes t echniques or standardized protocols for targeted exams where dose is indication/reason for exam). IV CONTRAST: Administered COMPARISON: None FINDINGS: INTRACRANIAL STRUCTURES & ORBITS: Unremarkable. AERODIGESTIVE: The nasal cavity, nasopharynx, oral cavity, oropharynx, hypopharynx, larynx, and visu alized trachea and esophagus demonstrate no masses or abnormal enhancement. Patient is edentulous. CERVICAL LYMPH NODES & SOFT TISSUES: Tortuous cervical carotid arteries including a retropharyngeal course of the right proximal cervical internal carotid artery. THYROID & SALIVARY GLANDS: Unremarkable. LUNG APICES: Clear. OSSEOUS: C5-C6 ACDF and C4-C5 disc degenerative change. Anterior endplate osteophyte at C4. IMPRESSION: 1. Tortuous cervical carotid arteries including a retropharyngeal course of the right proximal cervi maureen internal carotid artery. 2. C5-C6 ACDF and C4-C5 disc degenerative change. 3. 3. No specific cause for choking episodes is identified on contrast enhanced CT of the neck. Electronically signed by: Sandy Hirsch MD (03/30/2020 4:03 PM) [id number]
== END ==
LOC: CT 10:06
PROVIDERS: ATTEND Internal Medicine Critical Care Medicine
DX: M47.812 Spondylosis without myelopathy or radiculopathy, cervical region (principal); M25.78 Osteophyte, vertebrae; I77.1 Stricture of artery; I25.10 Atherosclerotic heart disease of native coronary artery without angina pectoris
CPT/HCPCS: 70491; 71275; Q9967

== ENCOUNTER → 2020-06-05 | Outpatient (CLI) | payer OTHER ==
[~2020-06-05] MED LIST changes: -IOHEXOL 350 MG/ML 100 ML VIAL. IV ONE; +METH-562 PO; -METH750T2 PO; +REGADENOSON 0.4 MG/5 ML DISP.SYRIN. IV ONE
--- NOTE | 2020-06-05 11:35 | CARD ---
MR#: [id number] Date of Study: 06/05/2020 Ordering Physician: RABIA VASQUEZ, Referring Physician: RABIA VASQUEZ Tech: Paris Evans [facility] APPROVED REPORT EXAM: Two-dimensional and M-mode echocardiogram with Doppler and color Doppler. Other Information Quality : AverageHR: 54bpm Rhythm : NSR INDICATION CAD RISK FACTORS Hypertension Obesity Hyperlipidemia 2D DIMENSIONS RVDd3.5 (2.9-3.5cm)Left Atrium(2D)3.5 (1.6-4.0cm) IVSd1.0 (0.7-1.1cm)Aortic Root(2D)3.8 (2.0-3.7cm) LVDd5.3 (3.9-5.9cm)LVOT Diameter2.2 (1.8-2.4cm) PWd1.0 (0.7-1.1cm)LVDs3.8 (2.5-4.0cm) FS (%) 27.9 %SV71.2 ml LVEF(%)53.6 (>50%) Aortic Valve AoV Peak Mk.146.7cm/sAoV VTI28.2cm AO Peak GR.8.6mmHgLVOT Peak Mk.123.0cm/s AO Mean GR.4mmHgAVA (VMAX)3.18cm2 Mitral Valve MV E Oxlzpeuu15.8cm/sMV DECEL NDEQ826mn MV A Yhkkauag07.4cm/sE/A Ratio1.1 Pulmonary Valve PV Peak Hgrdqdjp287.2cm/s Pulmonary Vein S1 Fdxmossa71.2cm/sD2 Xfjjaiap35.6cm/s PVa giytfdno000kmsp LEFT VENTRICLE The left ventricle is normal size. There is normal left ventricular wall thickness. The left ventricu lar systolic function is normal. Estimated ejection fraction 55-60% There is normal LV segmental wall motion. The left ventricular diastolic function and filling is normal for age. RIGHT VENTRICLE The right ventricle is normal size. There is normal right ventricular wall thickness. The right ventr icular systolic function is normal. ATRIA The left atrium size is normal. The right atrium size is normal. The interatrial septum is intact wit h no evidence for an atrial septal defect or patent foramen ovale as noted on 2-D or Doppler imaging. AORTIC VALVE The aortic valve is normal in structure and function. Doppler and Color Flow revealed no significant aortic regurgitation. There is no significant aortic valvular stenosis. MITRAL VALVE The mitral valve is normal in structure and function. There is no evidence of mitral valve prolapse. There is no mitral valve stenosis. Doppler and Color-flow revealed trace mitral regurgitation. TRICUSPID VALVE The tricuspid valve is normal in structure and function. Doppler and Color Flow revealed no tricuspid valve regurgitation noted. There is no tricuspid valve stenosis. PULMONIC VALVE The pulmonary valve is normal in structure and function. Doppler and Color Flow revealed trace pulmon ic valvular regurgitation. GREAT VESSELS The aortic root is mildly enlarged. The ascending aorta is Mildly dilated. The IVC is normal in size and collapses >50% with inspiration. PERICARDIAL EFFUSION There is no evidence of significant pericardial effusion. Critical Notification Critical Value: No <Conclusion> The left ventricular systolic function is normal. Estimated ejection fraction 55-60% There is normal LV segmental wall motion. Doppler and Color-flow revealed trace mitral regurgitation. There is no evidence of significant pericardial effusion. Signed by : Rabia Vasquez, Electronically Approved : 06/05/2020 11:34:58
--- NOTE | 2020-06-05 12:27 | RAD ---
MR#: [id number] Date of Study: 06/05/2020 Ordering Physician: RABIA VASQUEZ, Referring Physician: DESMOND THURSTON Tech: GOLDEN Sterling, ARRT (R) (N) APPROVED REPORT Test Type: Pharmacological Stress Nurse/Tech: Citlalli Kraft RN Test Indications: CAD Cardiac History: PTCA, 3 stents, x-smoker, HTN Medications: See Electronic Medical Record Medical History: See Electronic Medical Record Resting ECG: SR Resting Heart Rate: 53 bpm Resting Blood Pressure: 104/68mmHg Pretest Chest Pain: None Nurse/Tech Notes Lungs CTA, S1S2 Consent: The procedure was explained to the patient in lay terms. Informed consent was witnessed. Sajan eout was entered into [employer]. History and Stress Test performed by RT Sushil (R) (N) Pharm. Details Pharmacologic stress testing was performed using 0.4mg per 5ml of regadenoson given intravenously ove r 7-10 seconds. Stress Symptoms No chest pain or symptoms. POST EXERCISE Reason for Termination: Infusion complete Max HR: 101 bpm Max Blood Pressure: 140/78mmHg Blood Pressure response to exercise: Normal blood pressure response during stress. Heart Rate response to exercise: normal response Chest Pain: No. Arrhythmia: Yes. PAC ST Change: No. INTERPRETATION Stress EKG Conclusion: Baseline EKG showed sinus rhythm. No ischemic changes at peak stress. No arr hythmias. Imaging Protocol IMAGE PROTOCOL: Rest Tc-99m/stress Tc-99m 1 day Rest: Stress: Viability: Radiopharm.Tc99m AwdenuadeLb76c Sestamibi Dose10.5mCi 33mCi Img Date 06/05/2020 06/05/2020 Inj-Img Hpra46pqu. 60min. Rest Admin Site:IV - Left AntecubitalAdministrator:GOLDEN Sterling, ARRSheldon (R)(N) Stress Admin Site: IV - Left AntecubitalAdministrator: GOLDEN Sterling, BENNY (R)(N) STRESS DATA End Diast. Vol.112.0mlLVEDV index BSA49.0ml End Syst. Vol.36.0mlLVESV index BSA16.0ml Myocardial Knek741.0gEject. Vboxxbwl49.0% Stress Scores Regional WT2.00Summed WT9.00 Regional WM0.00Summed WM0.00 Study quality was good. Left Ventricular size was Normal at Rest and Stress. Lung uptake was . Left Ventricular ejection fraction is 68%. The rest and stress images show normal perfusion, normal contraction and thickening. LV Perf. Quant 17 Seg. SSS0.00 17 Seg. SRS0.00 17 Seg. SDS0.00 Stress Defect Extent (% LAD)0.00Rest Defect Extent (% LAD)0.00Rev. Defect Extent (% LAD)0.00 Stress Defect Extent (% LCX) 0.00Rest Defect Extent (% LCX)0.00Rev. Defect Extent (% LCX)0.00 Stress Defect Extent (% RCA)0.00Rest Defect Extent (% RCA)0.00Rev. Defect Extent (% RCA)0.00 Stress Defect Extent (% GALINA)0.00Rest Defect Extent (% GALINA)0.00Rev. Defect Extent (% GALINA)0.00 Conclusion 1. Regadenoson cardioisotope stress test did not show any evidence of ischemia or infarct. 2. Normal left ventricular systolic function with ejection fraction calculated at 68%. 3. Low risk for cardiac events. Signed by : Rabia Vasquez, Electronically Approved : 06/05/2020 12:27:06
== END ==
LOC: NM 08:58
PROVIDERS: ATTEND Internal Medicine Cardiovascular Disease
DX: I10 Essential (primary) hypertension (principal); I25.10 Atherosclerotic heart disease of native coronary artery without angina pectoris; Z87.891 Personal history of nicotine dependence
CPT/HCPCS: 78452; 93017; 93306; A9500; J2785

== ENCOUNTER → 2021-08-05 | Outpatient (CLI) | payer OTHER ==
[~2021-08-05] MED LIST changes: +CYCL10TA19 PO; -CYCL10TA2 PO; -LISI1TAB23 PO; +LISI1TAB35 PO; -OMEP40CA45 PO; +OMEP40CA7 PO; -REGADENOSON 0.4 MG/5 ML DISP.SYRIN. IV ONE
--- NOTE | 2021-08-05 17:41 | CARD ---
MR#: [id number] Date of Study: 08/05/2021 Ordering Physician: RABIA VASQUEZ, Referring Physician: RABIA VASQUEZ Tech: Paris Evans [facility] APPROVED REPORT EXAM: Two-dimensional and M-mode echocardiogram with Doppler and color Doppler. Other Information Quality : Technically LimitedHR: 58bpm Rhythm : NSRNSRAtrial FibrillationAtrial Flutter INDICATION Cardiac Disease: CAD RISK FACTORS Hypertension Obesity Hyperlipidemia 2D DIMENSIONS RVDd3.2 (2.9-3.5cm)Left Atrium(2D)4.2 (1.6-4.0cm) IVSd1.2 (0.7-1.1cm)Aortic Root(2D)3.7 (2.0-3.7cm) LVDd5.0 (3.9-5.9cm)LVOT Diameter2.5 (1.8-2.4cm) PWd1.2 (0.7-1.1cm)LVDs2.9 (2.5-4.0cm) FS (%) 42.2 %SV84.7 ml Aortic Valve AoV Peak Mk.160.9cm/sAoV VTI32.6cm AO Peak GR.10.4mmHgLVOT Peak Mk.125.7cm/s AO Mean GR.5mmHgAVA (VMAX)3.74cm2 Mitral Valve MV E Olihdefv63.0cm/sMV DECEL WQCN419ni MV A Bluibktj34.9cm/sE/A Ratio1.0 Pulmonary Valve PV Peak Pknhnnpj436.2cm/s Tricuspid Valve TR P. Fsjlkcgj330bk/sTR Peak Gr.21mmHg LEFT VENTRICLE The left ventricle is normal size. There is borderline concentric left ventricular hypertrophy. The l eft ventricular systolic function is normal. LV ejection fraction is 55 to 60%. There is normal LV s egmental wall motion. RIGHT VENTRICLE The right ventricle is normal size. There is normal right ventricular wall thickness. The right ventr icular systolic function is normal. ATRIA The left atrium size is normal. The right atrium size is normal. The interatrial septum is intact wit h no evidence for an atrial septal defect or patent foramen ovale as noted on 2-D or Doppler imaging. AORTIC VALVE The aortic valve is normal in structure and function. Doppler and Color Flow revealed no significant aortic regurgitation. There is no significant aortic valvular stenosis. MITRAL VALVE The mitral valve is normal in structure and function. There is no evidence of mitral valve prolapse. There is no mitral valve stenosis. Doppler and Color Flow revealed no mitral valve regurgitation note d. TRICUSPID VALVE The tricuspid valve is normal in structure and function. Doppler and Color Flow revealed trace tricus pid regurgitation. Estimated ejection fraction 25 mmHg. There is no tricuspid valve stenosis. PULMONIC VALVE The pulmonary valve is normal in structure and function. Doppler and Color Flow revealed no pulmonic valvular regurgitation. GREAT VESSELS The aortic root is mildly enlarged. The ascending aorta is mildly dilated. The IVC is normal in size and collapses >50% with inspiration. PERICARDIAL EFFUSION There is no evidence of significant pericardial effusion. Critical Notification Critical Value: No <Conclusion> The left ventricle is normal size. The left ventricular systolic function is normal. LV ejection fraction is 55 to 60%. There is borderline concentric left ventricular hypertrophy. Doppler and Color Flow revealed no significant aortic regurgitation. There is no significant aortic valvular stenosis. Doppler and Color Flow revealed no mitral valve regurgitation noted. Doppler and Color Flow revealed trace tricuspid regurgitation. Estimated ejection fraction 25 mmHg. The aortic root is mildly enlarged. The ascending aorta is mildly dilated. Signed by : Telly Pickett MD Electronically Approved : 08/05/2021 17:40:33
== END ==
LOC: ECHO 10:37
PROVIDERS: ATTEND Internal Medicine Cardiovascular Disease
DX: I77.819 Aortic ectasia, unspecified site (principal); I25.10 Atherosclerotic heart disease of native coronary artery without angina pectoris
CPT/HCPCS: 93306; C8929